=== PATIENT | female | born 2000 | race African-American/Black ===

== ENCOUNTER 2024-01-15 23:59 | Emergency (ER) | payer OTHER ==
[2024-01-16] MEDS ORDERED: Ibuprofen 800 MG TAB ONE (00:14)
[2024-01-16] MEDS ORDERED: Ondansetron ODT 4 MG TAB ONE (00:14)
[2024-01-16] MEDS ORDERED: Acetaminophen 500 MG TAB ONE (00:17)
[2024-01-16 01:35] LABS: Influenza A by NAA DETECTED (NotDetected); Influenza B by NAA Not Detected (NotDetected); SARS-CoV-2 NAA Rapid Test Not Detected (NotDetected)
== END 2024-01-16 01:47 | disposition home or self-care (01) ==
LOC: ERS 23:59
DX: J11.1 Influenza due to unidentified influenza virus with other respiratory manifestations (principal); M32.9 Systemic lupus erythematosus, unspecified; Z55.6 Problems related to health literacy
CPT/HCPCS: 99283; Q0162